=== PATIENT | male | born 1945 | race Caucasian/White ===

== ENCOUNTER 2018-09-08 10:00 | Outpatient (RCR) | payer MEDICARE, OTHER, SELFPAY | END 2018-10-06 10:43 | disposition home or self-care (01) | LOC: PT.CARL 10:00 | PROVIDERS: Visit Provider Neurological Surgery | DX: M47.816 Spondylosis without myelopathy or radiculopathy, lumbar region (principal) | CPT/HCPCS: 97012; 97014; 97110; 97163; G0283 ==